=== PATIENT | female | born 1995 | race Caucasian/White ===

== ENCOUNTER 2023-09-20 11:08 | Emergency (ER) | payer BC, SELFPAY ==
[2023-09-20 11:11] VITALS: BP 125/79; BMI 21.8
[2023-09-20 11:17] LABS: Glucose - Point of Care 81 mg/dl (70-99)
[2023-09-20 11:29] LABS: % Basophils 0.6 % (0-2); % Immature Granulocytes 0.3 % (0-0.5); % Lymphocytes 32.4 % (20.5-51.1); % Monocytes 5.6 % (1.7-9.3); % Neutrophils 58.1 % (42.2-75.2); Absolute Basophils 0.1 10^3/uL (0-0.2); Absolute Eosinophils 0.3 10^3/uL (0-0.7); Absolute Lymphocytes 3.3 10^3/uL (1.2-3.4); Absolute Monocytes 0.6 10^3/uL (0.1-0.6); Absolute Neutrophils 5.9 10^3/uL (1.4-6.5); Hematocrit 39.9 % (37.0-47.0); Hemoglobin 13.4 g/dL (12.0-16.0); Mean Corp Hgb Conc. 33.6 g/dL (33.0-37.0); Mean Corpuscular Volume 89.3 fL (81.0-99.0); Mean Platelet Volume 9.6 fL (7.4-10.4); Nucleated Red Blood Cells % 0 %; Platelet Count 291 10^3/uL (130-400); Red Blood Cell Count 4.47 10^6/uL (4.20-5.40); Red Cell Dist. Width 11.8 % (11.5-14.5); White Blood Cell Count 10.2 10^3/uL (4.8-10.8)
[2023-09-20 11:40] LABS: HCG, Serum Qualitative Screen Negative
[2023-09-20 11:43] LABS: ALT (SGPT) 19 U/L (0-35); AST (SGOT) 22 U/L (14-36); Albumin 4.1 g/dl (3.5-5.0); Alkaline Phosphatase 70 U/L (38-126); Blood Urea Nitrogen 17 mg/dl (7-17); Calcium 9.1 mg/dl (8.4-10.2); Carbon Dioxide 22 mmol/L (22-30); Chloride 102 mmol/L (98-107); Estimated Creatinine Clearance 108 ml/min; Glucose 79 mg/dl (70-99); Potassium 4.2 mmol/L (3.5-5.1); Sodium 135 mmol/L (135-145); Total Bilirubin 0.2 mg/dl (0.2-1.3); Total Protein 6.6 g/dl (6.3-8.2); eGFR > 60.00
--- NOTE | 2023-09-20 12:13 | ED.GENMED ---
History of Present Illness
General
Chief Complaint: Seizure
Source: patient and records
Exam Limitations: none
Time Seen by Provider: 09/20/23 11:21
Nursing documentation reviewed up to this point in time: agreed with
Travel History
Have you had any contact with someone who has COVID-19?: No
Do you have any symptoms of coronavirus? Fever > 100 degrees, chills, cough, shortness of breath, sore throat, loss of taste or smell, muscle aches, or headache?: No
History of Present Illness
History of Present Illness:
Patient is a 28-year-old female with a history of seizure disorder for which she takes Vimpat for and while at work today she had an 8-minute tonic-clonic seizure. Patient's first and only other 1 was on September 25 of last year. Patient had CT, MRI
and EEG all of which were unremarkable. Patient seen by a neurologist at [place]. Patient denies any recent illnesses or injuries. Patient denies fever, chills, sweats, nasal congestion, sore throat or cough. Patient denies any GI or symptoms.
Patient states she is compliant with medication.
Past History
Past History
ED Past Medical History: Seizures and Other (Eating disorder)
ED Past Surgical History: None
Social History
Tobacco: Non-smoker
Alcohol: None
Drug: None
Personal: Single
Living: with family
Review of Systems
Review of Systems
All Other Systems: ROS reviewed and negative except as documented in HPI and ROS
Constitutional: Reports no symptoms
EENT: Reports no symptoms
Respiratory: Reports no symptoms
Cardiac: Reports no symptoms
ABD/GI: Reports no symptoms
: Reports no symptoms
Musculoskeletal: Reports no symptoms
Skin: Reports no symptoms
Neurological: Reports other (8-minute generalized seizure); Denies dizzy, headache, weakness or numbness
Hematologic/Lymphatic: Reports no symptoms
Psychiatric: Reports no symptoms
Phy Exam
Physical Exam
Physical Exam:
Physical Exam
General: No apparent distress, alert and appropriate, well nourished, well hydrated
HENT: Normocephalic, supple with no lymphadenopathy, no thyromegaly
Eyes: Clear sclera, conjuctiva without injection
Heart: Regular rhythm and rate. No S3, S4. No murmur. No NVD
Lungs: No respiratory distress, no stridor, lung sounds clear and equal bilaterally
Abdomen: Soft, nontender, no organomegaly, no CVA tenderness, BS good
Neuro: Alert and oriented x 3, CN II - XII intact, no motor focality, no cerebellar dysfunction
Skin: no rash
Psychiatric: well kept. interactive and cooperative
Extremities: No edema, cyanosis, tenderness, Good and equal peripheral pulses.
Course
Orders/Labs/Results
Orders:
Orders
09/20/23 11:14
Test Result ONCE
09/20/23 11:19
Complete Blood Count/With Diff Urgent
Comprehensive Metabolic Panel Urgent
HCG, Serum Qualitative Screen Urgent
09/20/23 11:19
09/20/23 11:19
Vital Signs
Initial and Last Documented VS:
Initial Vital Signs
Temp Pulse Resp BP Pulse Ox
98.7 F 87 18 125/79 100
09/20/23 11:11 09/20/23 11:11 09/20/23 11:11 09/20/23 11:11 09/20/23 11:11
Last Documented Vital Signs
Temp Pulse Resp BP Pulse Ox
98.7 F 91 18 108/77 99
09/20/23 11:11 09/20/23 12:38 09/20/23 12:38 09/20/23 12:38 09/20/23 12:38
*Radiology
Radiology exam reviewed: other (na)
*Pulse Oximetry
Patient hypoxic: no
*Technical Services Analyst Interpretation
Rate: normal
Interpretation: normal
Heart Rate: 80
Rhythm: sinus
*Critical Care Note
Total Time (30-74mins, 75-104mins- exclusive of procedures): Not Applicable
Update Note
Update Note:
I informed the patient that she could not drive until cleared by her neurologist.
ED Attending Note
-
Portions of this chart may have been created with voice recognition software.� Occasional wrong word or��sound alike� substitutions may have occurred due to the inherent limitations of voice recognition software.
Discharge Plan
Departure
Patient Disposition: Home (Routine Discharge)
Date of Disposition: 09/20/23
Time of Disposition: 13:35
Patient with high blood pressure during this ER visit?: No
Condition: Good
Covid-19: Not Applicable
Discharge Problem:
Seizure disorder
Instructions: Seizures, Adult (DC)
Prescriptions:
No Action
levetiracetam [Keppra] 500 mg tablet
500 mg PO BID Qty: 60 0RF
Referrals:
Benja Cortez MD [Family Provider] - Follow up in 5-7 days
Activity Restrictions/Additional Instructions:
No driving until you are cleared by your neurologist. Continue your present medications and therapy.
Interventions
Interventions:
*Risk Screen - Suicide Last Done: 09/20/23 11:11
*General Assessment Last Done: 09/20/23 11:11
*Neglect/Abuse Screening Last Done: 09/20/23 11:11
ED- Cardiac Assessment Last Done: 09/20/23 12:36
ED- Neurological Assessment Last Done: 09/20/23 12:36
ED- Pulmonary Assessment Last Done: 09/20/23 12:36
Discharge Date and Time
Print Language: ARABIC
[2023-09-20 12:38] VITALS: BP 108/77
== END 2023-09-20 13:47 | disposition home or self-care (01) ==
LOC: EMR 11:08
PROVIDERS: EMERGENCY PHYSICIAN Emergency Medicine; FAMILY PHYSICIAN Family Medicine
DX: G40.909 Epilepsy, unspecified, not intractable, without status epilepticus (principal)
CPT/HCPCS: 99283; 80053; 82962; 84703; 85025

== ENCOUNTER 2024-01-13 16:23 | Emergency (ER) | payer BC, SELFPAY ==
[2024-01-13 16:29] VITALS: BP 118/86
[2024-01-13 16:36] VITALS: BMI 20.9
--- NOTE | 2024-01-13 16:43 | ED.GENMED ---
History of Present Illness
General
Chief Complaint: Seizure
Time Seen by Provider: 01/13/24 16:43
History of Present Illness
History of Present Illness:
28-year-old female with history of seizure disorder presenting to the emergency department for a seizure. Patient reports she had a seizure prior to arrival. Seizure was witnessed by a coworker, occurred at work. She reports compliance with her
medications. She is on Vimpat, 150 mg twice daily, recently started Lamictal, 50 mg. She follows with [facility]. She was diagnosed with seizures in 2022, notes that she had CT imaging, MRI, EEG without acute abnormality. She reports that
her last seizure was in September 2023. She denies any new medications, or any missed dosage of her medications. Denies any fever or infectious symptoms. Reports mild headache presently. Denies any known head injury or trauma, reports that she was
helped down to the ground. She denies chest pain or difficulty breathing. She denies extremity medical,
Past History
Past History
ED Past Medical History: Seizures and Other (Eating disorder)
ED Past Surgical History: None
Social History
Tobacco: Non-smoker
Alcohol: None
Drug: None
Personal: Single
Living: with family
Phy Exam
Physical Exam
Physical Exam:
General: Well-appearing, no clinical signs of dehydration, nontoxic and in no acute distress
HEENT: protecting airway
Neck: appears supple
CV: Normal heart rate, regular rhythm, no evidence of cyanosis
Resp: No accessory muscle use, no increased work of breathing, lungs clear to auscultation bilaterally
Abd: Soft and non-distended, no tenderness to palpation, normal bowel sounds
Extremities: No deformities, no swelling, no erythema, pulses and sensation intact
Neuro: alert, no focal neurologic deficit
: deferred
Rectal: deferred
Psych: Normal affect
Skin: Intact
Course
Orders/Labs/Results
Orders:
Orders
01/13/24 16:58
Cardiac Monitoring- Treatment ONCE
IV Insert/Care/Rem.- Treatment PRN
01/13/24 17:03
Complete Blood Count/With Diff Urgent
Comprehensive Metabolic Panel Urgent
01/13/24 17:18
Lacosamide [Vimpat] 300 mg PO NOW STA
01/13/24 17:19
Test Result ONCE
01/13/24 17:38
, Urine Qualitative Screen [HCG, Urine Qualitative Screen] Urgent
Date Specimen was Collected: 01/13/24
Time Specimen was Collected: 17:28
Urinalysis Reflex To Culture Urgent
Date Specimen was Collected: 01/13/24
Time Specimen was Collected: 17:28
Urine Microscopic Reflex Cult Urgent
Urine Culture Urgent
NEW Source: U
Specimen Description:
Date Specimen was Collected: 01/13/24
Time Specimen was Collected: 17:28
01/13/24 17:51
Electrocardiogram (*1) Stat
Reason for Study: Other
Other Reason for Exam: seizure
Electrocardiogram (*1) Urgent
Reason for Study: Other
Other Reason for Exam: seizure
EKG- Treatment ONCE
Abnormal Lab Results
01/13/24 01/13/24
17:03 17:38
Absolute Monos (auto) 0.8 H 10^3/uL
(0.1-0.6)
Ur Occult Blood Reflex 4+ A
(Negative)
Leukocyte Esterase Rfl Trace A
(Negative)
Urine RBC 3-6 A /HPF
(0-2)
Urine Bacteria (Reflex) Moderate A
(Negative)
01/13/24 17:03
01/13/24 17:03
Vital Signs
Initial and Last Documented VS:
Initial Vital Signs
Temp Pulse Resp BP Pulse Ox
98.3 F 85 24 118/86 99
01/13/24 16:29 07/22/24 16:29 01/13/24 16:29 01/13/24 16:29 01/13/24 16:29
Last Documented Vital Signs
Temp Pulse Resp BP Pulse Ox
98.3 F 72 20 115/90 98
01/13/24 16:29 01/13/24 18:30 01/13/24 18:30 01/13/24 18:08 01/13/24 18:30
MDM/Problems Addressed
MDM/Problems Addressed:
28-year-old female with history of seizure disorder presenting after a seizure. Vital signs on arrival are normal.
On exam patient is well-appearing, nontoxic. No physical exam findings of trauma. Patient neurologically intact. Suspect breakthrough seizure in a patient with known seizure disorder. Patient hemodynamically stable at this time. Will screen
with laboratory analysis and EKG. Will also check status. Patient notes that she recently started her menstrual cycle, has had a seizure on her menstrual cycle in the past. Will give loading dose of Vimpat, additionally she is due for
her nighttime dose of her Vimpat.
18:40 - Patient's labs unremarkable. EKG nonischemic. Patient remains hemodynamically stable, remains neurologically intact. Did complete reporting form for patient's license. Feel patient is stable for discharge, however with close interval
follow-up with her neurologist. Strict return precautions communicated and patient verbalized understanding
*EKG
Interpreted by ED Provider?: Yes
EKG Intrepretation Date: 01/13/24
EKG Intrepretation Time: 18:57
Interpretation: normal
Comparison EKG: no comparison EKG present
Heart Rate: 81
Rate: normal
Rhythm: sinus
[place]: normal axis
Interval: normal interval
QRS Pattern: normal QRS
Ischemia: no ischemia
*Critical Care Note
Total Time (30-74mins, 75-104mins- exclusive of procedures): Not Applicable
ED Attending Note
-
Portions of this chart may have been created with voice recognition software.� Occasional wrong word or��sound alike� substitutions may have occurred due to the inherent limitations of voice recognition software.
Discharge Plan
Departure
Patient Disposition: Home (Routine Discharge)
Date of Disposition: 01/13/24
Time of Disposition: 18:50
Patient with high blood pressure during this ER visit?: No
Condition: Good
Discharge Problem:
Breakthrough seizure
Instructions: Seizures, Adult (DC)
Prescriptions:
No Action
levetiracetam [Keppra] 500 mg tablet
500 mg PO BID Qty: 60 0RF
Referrals:
Benja Cortez MD [Family Provider] -
Activity Restrictions/Additional Instructions:
You were seen in the emergency department for seizure
You were found to have normal laboratory analysis and EKG
Please follow-up closely with your primary care physician as well as your neurologist. Please continue to take your medications as directed.
Return to the emergency department for any worsening of your symptoms, persistent seizures with confusion, or any development of chest pain, difficulty breathing, abdominal pain with persistent vomiting and inability to tolerate food or liquid by
mouth (concern for dehydration), weakness, headache or visual changes, fever greater than 100.4, or any additional symptoms that are concerning to you.
Thank you for choosing [facility].
Interventions
Interventions:
*Risk Screen - Suicide Last Done: 01/13/24 16:29
*General Assessment Last Done: 01/13/24 16:29
*Neglect/Abuse Screening Last Done: 01/13/24 16:29
ED- Fall Risk Assessment Last Done: 01/13/24 16:29
*ED COVID-19 Vaccine History Last Done: 01/13/24 16:29
ED- Cardiac Assessment Last Done: 01/13/24 16:37
ED- Neurological Assessment Last Done: 01/13/24 16:37
ED- Pulmonary Assessment Last Done: 01/13/24 16:37
Discharge Date and Time
Print Language: GERMAN
[2024-01-13 17:00] VITALS: BP 111/87
--- NOTE | 2024-01-13 17:07 | EDRN ---
Dr. Acrhuleta in room w/ pt at this time.
[2024-01-13 17:11] LABS: % Basophils 0.7 % (0-2); % Eosinophils 3.7 % (0-6); % Immature Granulocytes 0.3 % (0-0.5); % Lymphocytes 29.7 % (20.5-51.1); % Monocytes 7.1 % (1.7-9.3); % Neutrophils 58.5 % (42.2-75.2); Absolute Basophils 0.1 10^3/uL (0-0.2); Absolute Eosinophils 0.4 10^3/uL (0-0.7); Absolute Lymphocytes 3.2 10^3/uL (1.2-3.4); Absolute Monocytes 0.8 10^3/uL (0.1-0.6); Absolute Neutrophils 6.3 10^3/uL (1.4-6.5); Hematocrit 39.8 % (37.0-47.0); Hemoglobin 13.7 g/dL (12.0-16.0); Mean Corp Hgb Conc. 34.4 g/dL (33.0-37.0); Mean Corpuscular Hgb 29.7 pg (27.0-31.0); Mean Corpuscular Volume 86.1 fL (81.0-99.0); Mean Platelet Volume 9.7 fL (7.4-10.4); Nucleated Red Blood Cells % 0 %; Platelet Count 306 10^3/uL (130-400); Red Blood Cell Count 4.62 10^6/uL (4.20-5.40); Red Cell Dist. Width 12.3 % (11.5-14.5); White Blood Cell Count 10.8 10^3/uL (4.8-10.8)
--- NOTE | 2024-01-13 17:25 | EDRN ---
Pt attempting urine spec in BR at this time.
--- NOTE | 2024-01-13 17:26 | EDRN ---
Pharmacy called to send Vimpat 300 mg po at this time.
--- NOTE | 2024-01-13 17:28 | EDRN ---
Pt states she is menstruating at this time
[2024-01-13 17:31] LABS: ALT (SGPT) 16 U/L (0-35); AST (SGOT) 22 U/L (14-36); Albumin 4.5 g/dl (3.5-5.0); Alkaline Phosphatase 66 U/L (38-126); Blood Urea Nitrogen 14 mg/dl (7-17); Calcium 9.4 mg/dl (8.4-10.2); Carbon Dioxide 27 mmol/L (22-30); Chloride 103 mmol/L (98-107); Estimated Creatinine Clearance 81 ml/min; Glucose 86 mg/dl (70-99); Potassium 4.2 mmol/L (3.5-5.1); Sodium 137 mmol/L (135-145); Total Bilirubin 0.5 mg/dl (0.2-1.3); Total Protein 6.7 g/dl (6.3-8.2); eGFR > 60.00
[2024-01-13] MEDS: VIMPAT 300 MG PO (17:36)
--- NOTE | 2024-01-13 17:40 | EDRN ---
Pt states that her last seizure occurred during her menses as well.
[2024-01-13 17:43] LABS: Urine Albumin Negative (Neg - Trace); Urine Bilirubin Negative (Negative); Urine Character Clear (Clear); Urine Color Yellow; Urine Glucose Negative (Negative); Urine Ketone Negative (Negative); Urine Leukocyte Trace (Negative); Urine Nitrite Negative (Negative); Urine Occult Blood 4+ (Negative); Urine Specific Gravity 1.015 (<1.030); Urine Urobilinogen Negative (Neg - 1+)
[2024-01-13 17:46] LABS: HCG, Urine Qualitative Screen Negative
[2024-01-13 17:57] LABS: Urine Mucus Many; Urine Squamous Cell >30 /LPF (Few); Urine White Cell 0-2 /HPF (0-5)
[2024-01-13 17:58] LABS: Urine Bacteria Moderate (Negative)
[2024-01-13 18:08] VITALS: BP 115/90
--- NOTE | 2024-01-13 18:10 | EDRN ---
Pt complaining of nausea.
--- NOTE | 2024-01-13 18:35 | EDRN ---
Dr. Archuleta informed pt having nausea but when Dr. Archuleta just in to see pt nausea was gone.
[2024-01-13 19:17] VITALS: BP 118/87
== END 2024-01-13 19:20 | disposition home or self-care (01) ==
LOC: EMR 16:23
PROVIDERS: EMERGENCY PHYSICIAN Student in an Organized Health Care Education/Training Program; FAMILY PHYSICIAN Family Medicine
DX: G40.909 Epilepsy, unspecified, not intractable, without status epilepticus (principal)
CPT/HCPCS: 99283; 80053; 81003; 81015; 81025; 85025; 87086; 93005; 99282